=== PATIENT | female | born 1965 | race Native Hawaiian/Other Pacific Islander ===

== ENCOUNTER → 2021-05-30 | Outpatient (CLI) | payer BC ==
--- NOTE | 2021-05-30 14:47 | MM ---
Reason for exam: additional evaluation requested from abnormal screening. Last mammogram was performed less than 1 month ago. History: Patient is postmenopausal. Family history of breast cancer in sister at age 45. Physical Findings: Nurse did not find any significant physical abnormalities on exam. MG 3D Work Up W/Cad RT Spot compression CC and LM view(s) were taken of the right breast. Prior study comparison: May 16, 2021, bilateral MG screening mammo w CAD. July 23, 2012, CAD bilateral diagnostic mammogram. The breast tissue is heterogeneously dense. This may lower the sensitivity of mammography. No distinct lesion persists. These results were verbally communicated with the patient and result sheet given to the patient on 05/30/21. ASSESSMENT: Negative, BI-RAD 1 RECOMMENDATION: Return to routine screening mammogram schedule for both breasts.
== END | disposition home or self-care (01) ==
LOC: RADMAMWWP 13:55
PROVIDERS: ATTEND Family Medicine
DX: R92.8 Other abnormal and inconclusive findings on diagnostic imaging of breast (principal)
CPT/HCPCS: 77061; 77065

== ENCOUNTER 2024-10-24 16:46 | Emergency (ER) | payer BC ==
[2024-10-24 16:55] VITALS: RESP 18; TEMP 98
--- NOTE | 2024-10-24 17:29 | ED ---
Allergic Reaction HPI - General Chief complaint: Allergic Reaction Stated complaint: Allergic Rxn Time Seen by Provider: 10/24/24 16:59 Source: patient, RN notes reviewed Mode of arrival: ambulatory Limitations: no limitations - History of Present Illness Initial Comments: 58-year-old female presenting to emergency room with concerns for potential allergic reaction. Patient states that she was outside doing yard work when she felt that she had difficulty breathing with her tongue swelling in the back of her throat with swelling. Patient states that she took 50 mg of Benadryl and so presenting emergency department for further evaluation. Patient states that after she took the Benadryl symptoms have began to improve however she states that she feels that her tongue is mildly swollen. Patient denies known allergies. She denies SILVANO or ARB use. She denies history of angioedema. She denies use of new soaps, lotions, detergents, medications. - Related Data Previous Rx's Medication Instructions Recorded Pravastatin Sodium [Pravachol] 20 mg PO HS #30 tab 03/15/15 predniSONE 50 mg PO DAILY #5 tab 10/24/24 Allergies Allergy/AdvReac Type Severity Reaction Status Date / Time No Known Allergies Allergy Verified 10/24/24 16:55 Review of Systems ROS Statement: Those systems with pertinent positive or pertinent negative responses have been documented in the HPI. ROS Other: All systems not noted in ROS Statement are negative. Past Medical History Past Medical History: Diabetes Mellitus, GERD/Reflux Additional Past Medical History / Comment(s): hypoglycemia History of Any Multi-Drug Resistant Organisms: None Reported Past Surgical History: Cholecystectomy Past Anesthesia/Blood Transfusion Reactions: No Reported Reaction Past Psychological History: Anxiety Smoking Status: Never smoker Past Alcohol Use History: Occasional Past Drug Use History: None Reported - Past Family History Father Family Medical History: Myocardial Infarction ([place]) Sister(s) Family Medical History: Cancer General Exam Limitations: no limitations General appearance: alert, in no apparent distress ENT exam: Present: normal exam, mucous membranes moist Neck exam: Present: normal inspection. Absent: tenderness, meningismus, lymphadenopathy Respiratory exam: Present: normal lung sounds bilaterally. Absent: respiratory distress, wheezes, rales, rhonchi, stridor Cardiovascular Exam: Present: regular rate, normal rhythm, normal heart sounds. Absent: systolic murmur, diastolic murmur, rubs, gallop, clicks GI/Abdominal exam: Present: soft, normal bowel sounds. Absent: distended, tenderness, guarding, rebound, rigid Extremities exam: Present: normal inspection, full ROM, normal capillary refill. Absent: tenderness, pedal edema, joint swelling, calf tenderness Course Vital Signs 10/24/24 10/24/24 16:49 17:49 Temperature 98 F Pulse Rate 81 Respiratory 18 18 Rate Blood Pressure 160/88 O2 Sat by Pulse 100 Oximetry Medical Decision Making - Medical Decision Making Was pt. sent in by a medical professional or institution ([facility], [employer] [facility], urgent care, hospital, or correction...) When possible be specific @ -No Did you speak to anyone other than the patient for history (EMS, parent, family, police, friend...)? What history was obtained from this source @ -No Did you review nursing and triage notes (agree or disagree)? Why? @ -I reviewed and agree with nursing and triage notes Were old charts reviewed (outside hosp., previous admission, EMS record, old EKG, old radiological studies, urgent care reports/EKG's, correction records)? Report findings @ -No old charts were reviewed Differential Diagnosis (chest pain, altered mental status, abdominal pain women, abdominal pain men, vaginal bleeding, weakness, fever, dyspnea, syncope, headache, dizziness, GI bleed, back pain, seizure, CVA, palpatations, mental health, musculoskeletal)? @ -Angioedema, anaphylaxis, allergic reaction, this list is not all inclusive EKG interpreted by me (3pts min.). @ -None X-rays interpreted by me (1pt min.). @ -None done CT interpreted by me (1pt min.). @ -None done U/S interpreted by me (1pt. min.). @ -None done What testing was considered but not performed or refused? (CT, X-rays, U/S, labs)? Why? @ -None What meds were considered but not given or refused? Why? @ -None Did you discuss the management of the patient with other professionals (professionals i.e. [facility], [employer] [facility], lab, RT, psych nurse, neonatal social worker, primary teacher, teacher, geographic area intelligence officer, case fitter)? Give summary @ -No Was smoking cessation discussed for >3mins.? @ -No Was critical care preformed (if so, how long)? @ -No Were there social determinants of health that impacted care today? How? (Homelessness, low income, unemployed, alcoholism, drug addiction, transpor tation, low edu. Level, literacy, decrease access to med. care, shelter, rehab)? @ -No Was there de-escalation of care discussed even if they declined (Discuss DNR or withdrawal of care, Hospice)? DNR status @ -No What co-morbidities impacted this encounter? (DM, HTN, Smoking, COPD, CAD, Cancer, CVA, ARF, Chemo, Hep., AIDS, mental health diagnosis, sleep apnea, morbid obesity)? @ -None Was patient admitted / discharged? Hospital course, mention meds given and route, prescriptions, significant lab abnormalities, going to OR and other pertinent info. @ -Discharge. 58-year-old female presents emergency room with concerns of allergic reaction. Overall patient is well-appearing in no signs of respiratory distress. There is no signs of tongue swelling, lip swelling, soft palate swelling. Patient is protecting airway appropriately and is on 100% room air and oxygen. Patient is provided with allergic cocktail despite Benadryl as she took this prior to arrival. At reevaluation of her medications patient states that she is feeling well. Again patient is exhibiting no signs of respite distress. Recommend that she take Benadryl Pepcid as needed follow-up with primary care provider. Case discussed with Dr. Adler Undiagnosed new problem with uncertain prognosis? @ -No Drug Therapy requiring intensive monitoring for toxicity (Heparin, Nitro, Insulin, Cardizem)? @ -No Were any procedures done? @ -No Diagnosis/symptom? @ -Allergic reaction Acute, or Chronic, or Acute on Chronic? @ -Acute Uncomplicated (without systemic symptoms) or Complicated (systemic symptoms)? @ -Uncomplicated Side effects of treatment? @ -No Exacerbation, Progression, or Severe Exacerbation? @ -No Poses a threat to life or bodily function? How? (Chest pain, [place], [place], pneumonia, PE, COPD, DKA, ARF, appy, cholecystitis, CVA, Diverticulitis, Homicidal, Suicidal, threat to staff... and all critical care pts) @ -No Disposition Clinical Impression: Allergic reaction Disposition: HOME SELF-CARE Condition: Good Instructions (If sedation given, give patient instructions): Allergies (ED) Additional Instructions: Please return to the Emergency Department if symptoms worsen or any other concerns. Please continue to take Benadryl as needed and or Pepcid for intermittent symptoms. Prescriptions: predniSONE 50 mg PO DAILY #5 tab Is patient prescribed a controlled substance at d/c from ED?: No Referrals: Toshia Cano DO [Primary Care Provider] - 1-2 days Time of Disposition: 18:23
[2024-10-24] MEDS: methylPREDNISolone SOD SUCCI 125 MG/2 ML VIAL IM ONE (17:45)
[2024-10-24] MEDS: FAMOTIDINE 20 MG TAB PO STA (17:45)
[2024-10-24 18:41] VITALS: BP 149/86; PULSE 77
== END 2024-10-24 18:43 | disposition home or self-care (01) ==
LOC: EC 16:46
DX: T78.40XA Allergy, unspecified, initial encounter (principal)
CPT/HCPCS: 99283; 96372; J2919